=== PATIENT | male | born 1950 | race Caucasian/White ===

== ENCOUNTER → 2021-08-16 11:55 | Outpatient (CLI) | payer OTHER, SELFPAY ==
[2021-08-16 15:12] LABS: Hematocrit 27.9 % (40-54); Hemoglobin 8.3 g/dL (13.0-16.5); Mean Corp Hgb Conc 29.7 g/dL (32-36); Mean Corpuscular Hgb 23.9 pg (27.0-32.0); Mean Corpuscular Volume 80.2 fL (80-94); Platelet Count 300 K/mm3 (150-450); RBC Distribution Width CV 17.4 % (11.6-14.6); RBC Distribution Width SD 50.7 fl (35.1-43.9); Red Blood Count 3.48 M/mm3 (4.6-6.2)
[2021-08-16 15:30] LABS: Ferritin 16 ng/mL (26-388); Iron 13 ug/dL (65-175)
== END ==
PROVIDERS: Referring Provider Internal Medicine Gastroenterology; Visit Provider Internal Medicine Gastroenterology
DX: D50.9 Iron deficiency anemia, unspecified (principal)
CPT/HCPCS: 36415; 82728; 83540; 85027

== ENCOUNTER → 2023-07-24 | Outpatient (CLI) | payer OTHER, SELFPAY ==
--- NOTE | 2023-07-24 13:48 | NEURO ---
NCS and/or EMG Patient Report Ordering Doctor: Marty Alva DATE OF SERVICE: 07/24/23 Steven presents for electrodiagnostic testing of the upper limbs. He reports numbness and tingling in both hands for the past 3 months. Electrodiagnostic findings nerve conduction study, right median motor nerve demonstrates prolonged distal latency with normal amplitudes and normal conduction velocities. Ulnar motor response is within normal limits bilaterally. Median sensory latency at the wrist bilaterally. Normal ulnar and radial sensory responses. Needle EMG testing was performed the upper limbs. All muscles tested showed no evidence of denervation with normal motor unit action potentials. Electrodiagnostic Assessment: This is an abnormal study in the upper limbs. 1. 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 This is consistent with a mild bilateral carpal tunnel syndrome. 2. There is no electrodiagnostic evidence for cubital tunnel syndrome. 3. There is no electrodiagnostic evidence for cervical radiculopathy. Multi Select Codes Neurology Neurology Interp Codes: 59118-76 Musc test done w/n test comp (interp) (2) and 87789-37 Nrv cndj test 13/> studies (interp)
== END | disposition home or self-care (01) ==
PROVIDERS: Visit Provider Student in an Organized Health Care Education/Training Program
DX: R20.2 Paresthesia of skin (principal); M79.641 Pain in right hand; M79.642 Pain in left hand
CPT/HCPCS: 95886; 95913